=== PATIENT | female | born 1955 | race Two or more races ===

== ENCOUNTER 2017-08-23 13:47 | Outpatient (CLI) | payer OTHER ==
--- NOTE | 2017-08-23 15:31 | Diagnostic Imaging Report ---
Indication: Cough Comparison: None 2 views of the chest obtained. Lungs are clear. Heart size is normal. Aorta is mildly ectatic. Bones are osteopenic. Impression: No acute disease
== END 2017-08-23 15:47 | disposition home or self-care (01) ==
LOC: RAD 13:47
DX: R05 Cough (principal); R06.02 Shortness of breath; M85.80 Other specified disorders of bone density and structure, unspecified site
CPT/HCPCS: 71020